=== PATIENT | male | born 1940 | race Caucasian/White ===

== ENCOUNTER → 2018-01-27 | Outpatient (CLI) | payer OTHER, MEDICARE ==
[~2018-01-27] MED LIST: LOSA100T6 PO; METF500T27 PO; OXYC1TAB7 PO; PAIN MED PO; SENN1TAB7 PO; TERA5CAP3 PO
== END | disposition home or self-care (01) ==
LOC: RAD 09:21
PROVIDERS: ATTEND Otolaryngology
DX: H90.6 Mixed conductive and sensorineural hearing loss, bilateral (principal); E11.9 Type 2 diabetes mellitus without complications
CPT/HCPCS: 70480

== ENCOUNTER → 2018-04-28 | Outpatient (CLI) | payer OTHER, MEDICARE ==
[~2018-04-28] MED LIST changes: -LOSA100T6 PO; +LOSA100T7 PO; -SENN1TAB7 PO; +SENN1TAB8 PO
[2018-04-28 11:40] LABS: ALBUMIN 3.5 g/dL (3.4-5.0); ANION GAP 7 mmol/L (5-15); CALCIUM 8.6 mg/dL (8.5-10.1); CHLORIDE 111 mmol/L (98-107)
[2018-04-28 11:44] LABS: ALANINE AMINOTRANSFERASE 31 U/L (12-78); ALKALINE PHOSPHATASE 93 U/L (45-117); BILIRUBIN,TOTAL 1.5 mg/dL (0.2-1.0); CREATININE 0.65 mg/dL (0.7-1.3); TOTAL PROTEIN 7.2 g/dL (6.4-8.2)
== END | disposition home or self-care (01) ==
LOC: STAR 10:02
PROVIDERS: ATTEND Surgery
DX: Z01.818 Encounter for other preprocedural examination (principal); K40.90 Unilateral inguinal hernia, without obstruction or gangrene, not specified as recurrent
CPT/HCPCS: 36415; 80053; 93005

== ENCOUNTER 2018-05-04 05:41 | Day surgery (SDC) | payer OTHER, MEDICARE ==
[~2018-05-04] VITALS: Ht 165.1 cm; Wt 109.9 kg
[2018-05-04] MEDS ORDERED: LACTATED RINGERS 1,000 ML IV SCH (06:23)
[2018-05-04 06:24] VITALS: BP 179/82
[2018-05-04] MEDS ORDERED: LIDOCAINE-MPF 1%, 2ML INFIL ONE (06:30)
[2018-05-04] MEDS ORDERED: BUPIVACAINE/PF-EPI 0.5% 1:200K ONE (06:43)
[2018-05-04] MEDS ORDERED: LIDOCAINE/PF 1%, 30ML ONE (06:43)
[2018-05-04] MEDS ORDERED: FENTANYL PF 100 MCG/2ML ONE (07:06)
[2018-05-04] MEDS ORDERED: ACETAMINOPHEN 500 MG TABLET ONE (07:19)
[2018-05-04] MEDS ORDERED: ACETAMINOPHEN 500 MG TABLET PO ONE (07:30)
[2018-05-04] MEDS ORDERED: KETOROLAC 30 MG/1 ML ONE (07:39)
[2018-05-04] MEDS ORDERED: PROPOFOL 10 MG/ML, 20ML ONE (08:05)
[2018-05-04] MEDS ORDERED: CEFAZOLIN 1,000 MG ONE (08:05)
[2018-05-04] MEDS ORDERED: DEXAMETHASONE 4 MG/ML, 1ML ONE (08:05)
[2018-05-04] MEDS ORDERED: ONDANSETRON 2MG/ML, 2ML ONE (08:05)
[2018-05-04] MEDS ORDERED: DIPHENHYDRAMINE 50 MG/ML, 1ML IVPush PRN (09:00)
[2018-05-04] MEDS ORDERED: FENTANYL PF 100 MCG/2ML IV PRN (09:00)
[2018-05-04] MEDS ORDERED: hydrALAzine 20 MG/ML, 1ML IV PRN (09:00)
[2018-05-04] MEDS ORDERED: HYDROmorphone 1 MG/ML, 1ML IV PRN (09:00)
[2018-05-04] MEDS ORDERED: LABETALOL 5MG/ML, 20ML IV PRN (09:00)
[2018-05-04] MEDS ORDERED: OXYcodone 5 MG/5 ML ORAL.SOL UDC PO PRN (09:00)
[2018-05-04] MEDS ORDERED: PROCHLORPERAZINE 5 MG/ML, 2ML IV PRN (09:00)
[2018-05-04] MEDS ORDERED: MEPERIDINE/PF 25MG/0.5ML IVPush PRN (09:00)
[2018-05-04] MEDS ORDERED: OXYcodone 5 MG/5 ML ORAL.SOL UDC ONE (09:01)
== END 2018-05-04 13:00 | disposition home or self-care (01) ==
LOC: OUT 05:41
PROVIDERS: ATTEND Surgery
DX: K40.90 Unilateral inguinal hernia, without obstruction or gangrene, not specified as recurrent (principal); D17.6 Benign lipomatous neoplasm of spermatic cord; Z79.899 Other long term (current) drug therapy; Z98.890 Other specified postprocedural states; I10 Essential (primary) hypertension
CPT/HCPCS: 49505; 82962; C1781; J0690; J1100; J1885; J2405; J2704; J3010; J7120; J3490

== ENCOUNTER → 2018-07-20 | Outpatient (CLI) | payer OTHER, MEDICARE ==
[~2018-07-20] MED LIST changes: +LOSA100T14 PO; -LOSA100T7 PO; +OMNIPAQUE 350 MG/ML, 100ML BOTTLE ONE
== END | disposition home or self-care (01) ==
LOC: CFH 12:56
PROVIDERS: ATTEND Surgery
DX: N28.1 Cyst of kidney, acquired (principal); N20.0 Calculus of kidney; K57.90 Diverticulosis of intestine, part unspecified, without perforation or abscess without bleeding
CPT/HCPCS: 74177; 82565; Q9967

== ENCOUNTER 2018-07-27 10:03 | Observation (INO) | payer OTHER, MEDICARE ==
[2018-07-26 08:55] VITALS: BP 155/68
[~2018-07-27] VITALS: Ht 167.6 cm; Wt 108.1 kg
[~2018-07-27 10:03] MED LIST changes: -OMNIPAQUE 350 MG/ML, 100ML BOTTLE ONE; +SENN-177 PO; -SENN1TAB8 PO
[2018-07-27 10:55] VITALS: BP 155/68
[2018-07-27] MEDS ORDERED: LACTATED RINGERS 1,000 ML IV SCH (10:59)
[2018-07-27] MEDS ORDERED: ACETAMINOPHEN 500 MG TABLET PO ONE (11:00)
[2018-07-27] MEDS ORDERED: SCOPOLAMINE PATCH, 1.5MG PATCH.TD72 TD ONE (11:00)
[2018-07-27] MEDS ORDERED: DIAZEPAM 5 MG TABLET PO ONE (11:00)
[2018-07-27] MEDS ORDERED: ONDANSETRON 2MG/ML, 2ML ONE (11:22)
[2018-07-27] MEDS ORDERED: FENTANYL PF 250 MCG/5ML ONE (11:22)
[2018-07-27] MEDS ORDERED: DEXAMETHASONE 4 MG/ML, 5ML ONE (11:24)
[2018-07-27] MEDS ORDERED: CEFAZOLIN 1,000 MG ONE (11:24)
[2018-07-27] MEDS ORDERED: ROCURONIUM 10MG/ML,5ML ONE (11:24)
[2018-07-27] MEDS ORDERED: SUCCINYLCHOLINE 20 MG/ML, 10ML ONE (11:24)
[2018-07-27] MEDS ORDERED: PROPOFOL 10 MG/ML, 20ML ONE (11:24)
[2018-07-27] MEDS ORDERED: BUPIVACAINE/PF-EPI 0.5% 1:200K ONE (11:26)
[2018-07-27] MEDS ORDERED: EPHEDRINE 50 MG/ML, 1ML ONE (12:25)
[2018-07-27] MEDS ORDERED: ALBUTEROL SULFATE 2.5 MG/3 ML NPPB PRN (13:00)
[2018-07-27] MEDS ORDERED: MEPERIDINE/PF 25MG/0.5ML IVPush PRN (13:00)
[2018-07-27] MEDS ORDERED: MIDAZOLAM 1 MG/ML, 2ML IV PRN (13:00)
[2018-07-27] MEDS ORDERED: MORPHINE SULFATE 4 MG/ML, 1ML IVPush PRN (13:00)
[2018-07-27] MEDS ORDERED: PROMETHAZINE 12.5 MG SUPP PR PRN (13:00)
[2018-07-27] MEDS ORDERED: ONDANSETRON 2MG/ML, 2ML IV PRN (13:00)
[2018-07-27] MEDS ORDERED: EPHEDRINE 50 MG/ML, 1ML IVPush PRN (13:00)
[2018-07-27] MEDS ORDERED: HYDROmorphone 2 MG/ML, 1ML IVPush PRN (13:00)
[2018-07-27] MEDS ORDERED: hydrALAzine 20 MG/ML, 1ML IV PRN (13:00)
[2018-07-27] MEDS ORDERED: ONDANSETRON ODT 8 MG PO PRN (13:00)
[2018-07-27] MEDS ORDERED: LABETALOL 5MG/ML, 20ML IV PRN (13:00)
[2018-07-27] MEDS ORDERED: HALOPERIDOL 5 MG/ML IV PRN (13:00)
[2018-07-27] MEDS ORDERED: DIAZEPAM 5 MG/ML, 2ML IVPush PRN (13:00)
[2018-07-27] MEDS ORDERED: PROMETHAZINE 25 MG/ML, 1ML IV PRN (13:00)
[2018-07-27] MEDS ORDERED: OXYcodone 5 MG/5 ML ORAL.SOL UDC ONE ×2 (13:33→14:08)
[2018-07-27] MEDS ORDERED: FENTANYL PF 100 MCG/2ML ONE ×2 (13:33→14:08)
[2018-07-27] MEDS: FENTANYL PF 100 MCG/2ML IV PRN ×3 (13:35→14:10)
[2018-07-27] MEDS: OXYcodone 5 MG/5 ML ORAL.SOL UDC PO PRN ×2 (13:37→14:10)
== END 2018-07-27 17:15 | disposition home or self-care (01) ==
LOC: OUT 10:03 → 2N 10:03 → EDSTATUS 12:00 → UNDOADMOB 12:15 → 3NE 12:15 → OUT 16:40
PROVIDERS: ADMIT Surgery; ATTEND Surgery
DX: T85.79XA Infection and inflammatory reaction due to other internal prosthetic devices, implants and grafts, initial encounter (principal); T81.42XA Infection following a procedure, deep incisional surgical site, initial encounter; Y83.8 Other surgical procedures as the cause of abnormal reaction of the patient, or of later complication, without mention of misadventure at the time of the procedure; Y92.89 Other specified places as the place of occurrence of the external cause
CPT/HCPCS: 10180; 11008; 82962; G0378; J0330; J0690; J1100; J2405; J2704; J3010; J7120

== ENCOUNTER 2018-07-29 08:08 | Outpatient (CLI) | payer OTHER, MEDICARE ==
[~2018-07-29 08:08] MED LIST changes: -SENN-177 PO; +SENN1TAB8 PO
== END 2018-07-29 23:59 | disposition home or self-care (01) ==
LOC: WOUND 08:08
PROVIDERS: ATTEND Family Medicine
DX: T81.31XA Disruption of external operation (surgical) wound, not elsewhere classified, initial encounter (principal); L02.211 Cutaneous abscess of abdominal wall; E11.21 Type 2 diabetes mellitus with diabetic nephropathy; I10 Essential (primary) hypertension; H91.90 Unspecified hearing loss, unspecified ear; E66.01 Morbid (severe) obesity due to excess calories; Z68.41 Body mass index [BMI] 40.0-44.9, adult; Y92.89 Other specified places as the place of occurrence of the external cause; Y83.1 Surgical operation with implant of artificial internal device as the cause of abnormal reaction of the patient, or of later complication, without mention of misadventure at the time of the procedure
CPT/HCPCS: 97605; 99215

== ENCOUNTER 2018-08-01 08:16 | Outpatient (CLI) | payer OTHER, MEDICARE | END 2018-08-01 23:59 | disposition home or self-care (01) | LOC: WOUND 08:16 | PROVIDERS: ATTEND Internal Medicine | DX: T83.728 Exposure of other implanted mesh into organ or tissue (principal); E11.21 Type 2 diabetes mellitus with diabetic nephropathy; I10 Essential (primary) hypertension; E66.01 Morbid (severe) obesity due to excess calories; H91.90 Unspecified hearing loss, unspecified ear; Y83.1 Surgical operation with implant of artificial internal device as the cause of abnormal reaction of the patient, or of later complication, without mention of misadventure at the time of the procedure | CPT/HCPCS: 87070; 87077; 87186; 87205; 97605 ==

== ENCOUNTER → 2018-08-03 | Outpatient (CLI) | payer OTHER, MEDICARE | END | disposition home or self-care (01) | LOC: WOUND 07:59 | PROVIDERS: ATTEND Internal Medicine | DX: T83.728 Exposure of other implanted mesh into organ or tissue (principal); E11.21 Type 2 diabetes mellitus with diabetic nephropathy; I10 Essential (primary) hypertension; E66.01 Morbid (severe) obesity due to excess calories; H91.90 Unspecified hearing loss, unspecified ear; Y83.1 Surgical operation with implant of artificial internal device as the cause of abnormal reaction of the patient, or of later complication, without mention of misadventure at the time of the procedure | CPT/HCPCS: 97605 ==

== ENCOUNTER 2018-08-05 09:17 | Outpatient (CLI) | payer OTHER, MEDICARE | END 2018-08-05 23:59 | disposition home or self-care (01) | LOC: WOUND 09:17 | PROVIDERS: ATTEND Family Medicine | DX: T81.31XD Disruption of external operation (surgical) wound, not elsewhere classified, subsequent encounter (principal); L02.211 Cutaneous abscess of abdominal wall; E11.21 Type 2 diabetes mellitus with diabetic nephropathy; E66.01 Morbid (severe) obesity due to excess calories; I10 Essential (primary) hypertension; H91.90 Unspecified hearing loss, unspecified ear; E66.9 Obesity, unspecified; Z68.41 Body mass index [BMI] 40.0-44.9, adult; Y83.8 Other surgical procedures as the cause of abnormal reaction of the patient, or of later complication, without mention of misadventure at the time of the procedure | CPT/HCPCS: 97605 ==

== ENCOUNTER 2018-08-08 13:53 | Inpatient (IN) | payer OTHER, MEDICARE ==
[~2018-08-08] VITALS: Ht 167.6 cm; Wt 109.7 kg
[~2018-08-08 13:53] MED LIST changes: +SENN-177 PO; -SENN1TAB8 PO
[2018-08-08] MEDS ORDERED: ONDANSETRON 2MG/ML, 2ML IVPush PRN (17:30)
[2018-08-08] MEDS: HEPARIN 5,000 UNITS/ML, 1ML SQ SCH (17:30)
[2018-08-08] MEDS ORDERED: GABAPENTIN 300 MG CAPSULE PO PRN (17:30)
[2018-08-08] MEDS ORDERED: ACETAMINOPHEN 325 MG TABLET PO PRN (17:30)
[2018-08-08] MEDS ORDERED: morphine SULFATE 10 MG/ML, 1ML IVPush PRN (17:30)
[2018-08-08] MEDS ORDERED: LABETALOL 5MG/ML, 20ML IVPush PRN (17:30)
[2018-08-08] MEDS ORDERED: HYDROcodone/APAP 5/325 TABLET PO PRN (17:30)
[2018-08-08 17:50] VITALS: BP 142/65
[2018-08-08] MEDS ORDERED: DAPTOMYCIN 700 MG in SODIUM CHLORIDE 0.9% 100 ML IV SCH (18:00)
[2018-08-08] MEDS ORDERED: PLEASE ENTER HEIGHT AND WEIGHT MC SCH (18:00)
[2018-08-08 18:16] LABS: BASOPHILS # (AUTO) 0.02 x10^3/uL (0-0.1); BASOPHILS % (AUTO) 0 % (0-1); EOSINOPHILS # (AUTO) 0.49 x10^3/uL (0-0.4); EOSINOPHILS % (AUTO) 6 % (1-7); LYMPHOCYTES % (AUTO) 18 % (22-44); MD NO; MEAN CORPUSCULAR HEMOGLOBIN 29.6 pg (27.5-34.5); MEAN CORPUSCULAR HGB CONC 33.2 g/dL (33.2-36.2); MEAN CORPUSCULAR VOLUME 89.3 fL (81-97); MEAN PLATELET VOLUME 7.2 fL (7.4-10.4); MONOCYTES # (AUTO) 0.65 x10^3/uL (0.2-0.8); MONOCYTES % (AUTO) 8 % (2-9); NEUTROPHILS # (AUTO) 5.27 x10^3/uL (1.8-6.8); NEUTROPHILS % (AUTO) 67 % (42-75); PLATELET COUNT 228 x10^3/uL (130-400); RED BLOOD COUNT 4.05 x10^6/uL (4.38-5.82); RED CELL DISTRIBUTION WIDTH 17.3 % (9.4-14.8)
[2018-08-08 18:20] LABS: INTERNATIONAL NORMALIZED RATIO 1.1 (0.93-1.1); PROTHROMBIN TIME 11.5 Seconds (9.6-11.5)
[2018-08-08 18:22] LABS: ALBUMIN 2.9 g/dL (3.4-5.0); ANION GAP 4 mmol/L (5-15); CALCIUM 7.9 mg/dL (8.5-10.1); CHLORIDE 113 mmol/L (98-107)
[2018-08-08 18:25] LABS: ALANINE AMINOTRANSFERASE 12 U/L (12-78); ALKALINE PHOSPHATASE 68 U/L (45-117); BILIRUBIN,TOTAL 0.9 mg/dL (0.2-1.0); CREATININE 0.66 mg/dL (0.7-1.3); TOTAL PROTEIN 6.4 g/dL (6.4-8.2)
[2018-08-08] MEDS: SODIUM CHLORIDE 0.9% 1,000 ML IV SCH (19:03)
[2018-08-08 19:10] VITALS: BP 155/68
[2018-08-08] MEDS: PIPERACILLIN/TAZO/PMX 3.375GM 50 ML IV SCH (20:49)
[2018-08-09 00:23] VITALS: BP 129/74
[2018-08-09] MEDS: HEPARIN 5,000 UNITS/ML, 1ML SQ SCH ×3 (01:12→15:27)
[2018-08-09] MEDS: PIPERACILLIN/TAZO/PMX 3.375GM 50 ML IV SCH ×3 (02:50→14:06)
[2018-08-09 05:12] LABS: ALANINE AMINOTRANSFERASE 15 U/L (12-78); ALBUMIN 2.8 g/dL (3.4-5.0); ALKALINE PHOSPHATASE 66 U/L (45-117); BILIRUBIN,TOTAL 1.4 mg/dL (0.2-1.0); TOTAL PROTEIN 6.2 g/dL (6.4-8.2)
[2018-08-09 05:19] LABS: ANION GAP 6 mmol/L (5-15); CHLORIDE 113 mmol/L (98-107)
[2018-08-09 06:48] VITALS: BP 126/70
[2018-08-09] MEDS: LOSARTAN 50MG TABLET PO SCH (08:10)
[2018-08-09] MEDS ORDERED: OMNIPAQUE 350 MG/ML, 100ML BOTTLE ONE (10:03)
[2018-08-09 12:22] VITALS: BP 133/71
[2018-08-09] MEDS: SODIUM CHLORIDE 0.9% 1,000 ML IV SCH (15:00)
[2018-08-09] MEDS: DAPTOMYCIN 900 MG in SODIUM CHLORIDE 0.9% 100 ML IVPB SCH (15:11)
[2018-08-09] MEDS: INSULIN LISPRO 100 UNITS/ML, PEN SQ-INSULIN SCH ×2 (15:29→21:00)
[2018-08-09 19:03] VITALS: BP 129/72
[2018-08-09] MEDS: CIPROFLOXACIN 500 MG TABLET PO SCH (21:07)
[2018-08-10 01:16] VITALS: BP 154/80
[2018-08-10] MEDS: HEPARIN 5,000 UNITS/ML, 1ML SQ SCH ×3 (01:30→18:36)
[2018-08-10 05:31] LABS: ALBUMIN 2.7 g/dL (3.4-5.0); ANION GAP 4 mmol/L (5-15); CALCIUM 8.2 mg/dL (8.5-10.1); CHLORIDE 111 mmol/L (98-107)
[2018-08-10 05:37] LABS: ALANINE AMINOTRANSFERASE 17 U/L (12-78); ALKALINE PHOSPHATASE 67 U/L (45-117); BILIRUBIN,TOTAL 0.9 mg/dL (0.2-1.0); CREATININE 0.61 mg/dL (0.7-1.3); TOTAL PROTEIN 6.3 g/dL (6.4-8.2)
[2018-08-10 05:49] LABS: BASOPHILS # (AUTO) 0.01 x10^3/uL (0-0.1); BASOPHILS % (AUTO) 0 % (0-1); EOSINOPHILS # (AUTO) 0.54 x10^3/uL (0-0.4); EOSINOPHILS % (AUTO) 10 % (1-7); LYMPHOCYTES % (AUTO) 25 % (22-44); MD NO; MEAN CORPUSCULAR HEMOGLOBIN 29.6 pg (27.5-34.5); MEAN CORPUSCULAR HGB CONC 33.5 g/dL (33.2-36.2); MEAN CORPUSCULAR VOLUME 88.3 fL (81-97); MEAN PLATELET VOLUME 7.1 fL (7.4-10.4); MONOCYTES % (AUTO) 8 % (2-9); NEUTROPHILS # (AUTO) 2.95 x10^3/uL (1.8-6.8); NEUTROPHILS % (AUTO) 57 % (42-75); PLATELET COUNT 246 x10^3/uL (130-400); RED CELL DISTRIBUTION WIDTH 17.5 % (9.4-14.8)
[2018-08-10] MEDS: INSULIN LISPRO 100 UNITS/ML, PEN SQ-INSULIN SCH ×4 (07:00→20:00)
[2018-08-10 07:21] VITALS: BP 156/78
[2018-08-10] MEDS: CIPROFLOXACIN 500 MG TABLET PO SCH ×2 (09:30→20:00)
[2018-08-10] MEDS: LOSARTAN 50MG TABLET PO SCH (09:30)
[2018-08-10 12:11] VITALS: BP 160/80
[2018-08-10] MEDS: DAPTOMYCIN 900 MG in SODIUM CHLORIDE 0.9% 100 ML IVPB SCH (15:51)
[2018-08-10 20:10] VITALS: BP 155/63
[2018-08-11 01:48] VITALS: BP 161/71
[2018-08-11] MEDS: HEPARIN 5,000 UNITS/ML, 1ML SQ SCH (02:39)
[2018-08-11 06:36] VITALS: BP 163/64
[2018-08-11] MEDS ORDERED: LABETALOL 5MG/ML, 20ML IVPush PRN (07:00)
[2018-08-11] MEDS: INSULIN LISPRO 100 UNITS/ML, PEN SQ-INSULIN SCH ×4 (07:00→20:14)
[2018-08-11] MEDS: HYDROCHLOROTHIAZIDE 25 MG TABLET PO SCH (08:11)
[2018-08-11] MEDS: LOSARTAN 50MG TABLET PO SCH (08:11)
[2018-08-11] MEDS: CIPROFLOXACIN 500 MG TABLET PO SCH ×2 (08:12→20:13)
[2018-08-11] MEDS: ENOXAPARIN 40 MG/0.4 ML SQ SCH (11:59)
[2018-08-11 12:17] VITALS: BP 157/58
[2018-08-11] MEDS: DAPTOMYCIN 900 MG in SODIUM CHLORIDE 0.9% 100 ML IVPB SCH (15:29)
[2018-08-11 18:49] VITALS: BP 132/65
[2018-08-12 00:30] VITALS: BP 162/84
[2018-08-12 06:45] VITALS: BP 147/70
[2018-08-12] MEDS: INSULIN LISPRO 100 UNITS/ML, PEN SQ-INSULIN SCH ×4 (07:00→21:37)
[2018-08-12] MEDS: AMLODIPINE 5 MG TABLET PO SCH (08:13)
[2018-08-12] MEDS: HYDROCHLOROTHIAZIDE 25 MG TABLET PO SCH (08:13)
[2018-08-12] MEDS: LOSARTAN 50MG TABLET PO SCH (08:13)
[2018-08-12] MEDS: CIPROFLOXACIN 500 MG TABLET PO SCH ×2 (08:14→19:47)
[2018-08-12] MEDS: ENOXAPARIN 40 MG/0.4 ML SQ SCH (11:39)
[2018-08-12] MEDS: SODIUM CHLORIDE 0.9% 1,000 ML IV SCH (11:39)
[2018-08-12 13:19] LABS: CLOSTRIDIUM DIFFICILE ANTIGEN NEGATIVE; CLOSTRIDIUM DIFFICILE TOXIN NEGATIVE (Negative)
[2018-08-12] MEDS: DAPTOMYCIN IVPB SCH (13:28)
[2018-08-12] MEDS: SODIUM CHLORIDE 0.9% IVPB SCH (13:28)
[2018-08-12 14:00] VITALS: BP 117/58
[2018-08-12 18:32] VITALS: BP 128/54
[2018-08-13 02:20] VITALS: BP 119/61
[2018-08-13 03:19] LABS: BASOPHILS # (AUTO) 0.03 x10^3/uL (0-0.1); BASOPHILS % (AUTO) 1 % (0-1); EOSINOPHILS # (AUTO) 0.45 x10^3/uL (0-0.4); EOSINOPHILS % (AUTO) 8 % (1-7); LYMPHOCYTES # (AUTO) 1.38 x10^3/uL (1-3.4); LYMPHOCYTES % (AUTO) 25 % (22-44); MD NO; MEAN CORPUSCULAR HEMOGLOBIN 29.3 pg (27.5-34.5); MEAN CORPUSCULAR HGB CONC 32.9 g/dL (33.2-36.2); MEAN CORPUSCULAR VOLUME 88.9 fL (81-97); MEAN PLATELET VOLUME 7.1 fL (7.4-10.4); MONOCYTES # (AUTO) 0.42 x10^3/uL (0.2-0.8); MONOCYTES % (AUTO) 8 % (2-9); NEUTROPHILS # (AUTO) 3.17 x10^3/uL (1.8-6.8); NEUTROPHILS % (AUTO) 58 % (42-75); PLATELET COUNT 277 x10^3/uL (130-400); RED BLOOD COUNT 4.52 x10^6/uL (4.38-5.82); RED CELL DISTRIBUTION WIDTH 17.3 % (9.4-14.8)
[2018-08-13 03:28] LABS: ALANINE AMINOTRANSFERASE 29 U/L (12-78); ALBUMIN 3.2 g/dL (3.4-5.0); ANION GAP 4 mmol/L (5-15); CALCIUM 8.7 mg/dL (8.5-10.1); CHLORIDE 111 mmol/L (98-107); CREATININE 0.77 mg/dL (0.7-1.3)
[2018-08-13 03:30] LABS: ALKALINE PHOSPHATASE 81 U/L (45-117); BILIRUBIN,TOTAL 0.7 mg/dL (0.2-1.0); TOTAL PROTEIN 7.2 g/dL (6.4-8.2)
[2018-08-13 06:53] VITALS: BP 173/80
[2018-08-13] MEDS: INSULIN LISPRO 100 UNITS/ML, PEN SQ-INSULIN SCH ×4 (08:56→20:43)
[2018-08-13] MEDS: SODIUM CHLORIDE 0.9% 1,000 ML IV SCH (08:56)
[2018-08-13] MEDS: LOSARTAN 50MG TABLET PO SCH (08:57)
[2018-08-13] MEDS: AMLODIPINE 5 MG TABLET PO SCH (08:57)
[2018-08-13] MEDS: HYDROCHLOROTHIAZIDE 25 MG TABLET PO SCH (08:57)
[2018-08-13] MEDS: CIPROFLOXACIN 500 MG TABLET PO SCH ×2 (08:58→20:44)
[2018-08-13] MEDS: ENOXAPARIN 40 MG/0.4 ML SQ SCH (08:58)
[2018-08-13 12:44] VITALS: BP 133/50
[2018-08-13] MEDS: DAPTOMYCIN IVPB SCH (13:55)
[2018-08-13] MEDS: SODIUM CHLORIDE 0.9% IVPB SCH (13:55)
[2018-08-13 18:30] VITALS: BP 156/71
[2018-08-14 01:33] VITALS: BP 163/77
[2018-08-14] MEDS: SODIUM CHLORIDE 0.9% 1,000 ML IV SCH (04:04)
[2018-08-14 06:40] VITALS: BP 159/80
[2018-08-14] MEDS: INSULIN LISPRO 100 UNITS/ML, PEN SQ-INSULIN SCH ×4 (07:00→20:46)
[2018-08-14] MEDS ORDERED: ACETAMINOPHEN 325 MG TABLET PO PRN (07:30)
[2018-08-14] MEDS: CARVEDILOL 6.25 MG TABLET PO SCH ×2 (08:06→17:33)
[2018-08-14] MEDS: HEPARIN 5,000 UNITS/ML, 1ML SQ SCH ×3 (08:07→23:30)
[2018-08-14] MEDS: LACTOBACILLUS CHEW TABLET PO SCH ×3 (09:33→20:41)
[2018-08-14] MEDS: CIPROFLOXACIN 500 MG TABLET PO SCH ×2 (09:33→20:41)
[2018-08-14] MEDS: LOSARTAN 50MG TABLET PO SCH (09:34)
[2018-08-14] MEDS: ISOSORBIDE DINITRATE 10 MG TABLET PO SCH ×3 (09:34→20:41)
[2018-08-14 12:03] VITALS: BP 105/58
[2018-08-14] MEDS: SODIUM CHLORIDE 0.9% IVPB SCH (13:01)
[2018-08-14] MEDS: DAPTOMYCIN IVPB SCH (13:01)
[2018-08-14 18:58] VITALS: BP 111/62
[2018-08-15 04:50] VITALS: BP 146/75
[2018-08-15] MEDS: CARVEDILOL 6.25 MG TABLET PO SCH ×2 (06:00→18:24)
[2018-08-15 06:29] LABS: HCT (SEDRATE) 39.1 % (39.2-51.8)
[2018-08-15 06:30] LABS: BASOPHILS # (AUTO) 0.02 x10^3/uL (0-0.1); BASOPHILS % (AUTO) 0 % (0-1); EOSINOPHILS # (AUTO) 0.32 x10^3/uL (0-0.4); EOSINOPHILS % (AUTO) 7 % (1-7); LYMPHOCYTES # (AUTO) 1.61 x10^3/uL (1-3.4); LYMPHOCYTES % (AUTO) 33 % (22-44); MD NO; MEAN CORPUSCULAR HEMOGLOBIN 29.6 pg (27.5-34.5); MEAN CORPUSCULAR HGB CONC 33.9 g/dL (33.2-36.2); MEAN CORPUSCULAR VOLUME 87.4 fL (81-97); MEAN PLATELET VOLUME 7.2 fL (7.4-10.4); MONOCYTES # (AUTO) 0.45 x10^3/uL (0.2-0.8); MONOCYTES % (AUTO) 9 % (2-9); NEUTROPHILS # (AUTO) 2.44 x10^3/uL (1.8-6.8); NEUTROPHILS % (AUTO) 51 % (42-75); PLATELET COUNT 246 x10^3/uL (130-400); RED BLOOD COUNT 4.42 x10^6/uL (4.38-5.82); RED CELL DISTRIBUTION WIDTH 17.8 % (9.4-14.8)
[2018-08-15 06:34] VITALS: BP 165/85
[2018-08-15 06:42] LABS: ALBUMIN 3.2 g/dL (3.4-5.0); ANION GAP 2 mmol/L (5-15); C-REACTIVE PROTEIN, QUANT 0.74 mg/dL (0.02-0.49); CALCIUM 8.3 mg/dL (8.5-10.1); CHLORIDE 113 mmol/L (98-107)
[2018-08-15 06:44] LABS: ALANINE AMINOTRANSFERASE 34 U/L (12-78); ALKALINE PHOSPHATASE 79 U/L (45-117); BILIRUBIN,TOTAL 0.8 mg/dL (0.2-1.0); CREATINE KINASE, TOTAL 45 U/L (39-308); CREATININE 0.77 mg/dL (0.7-1.3); TOTAL PROTEIN 7.1 g/dL (6.4-8.2)
[2018-08-15 06:48] LABS: HEMOGLOBIN A1C 6.6 % (4.2-6.3)
[2018-08-15] MEDS: INSULIN LISPRO 100 UNITS/ML, PEN SQ-INSULIN SCH ×4 (07:00→20:14)
[2018-08-15] MEDS: SODIUM CHLORIDE 0.9% 1,000 ML IV SCH (07:53)
[2018-08-15] MEDS: HEPARIN 5,000 UNITS/ML, 1ML SQ SCH ×3 (07:53→23:30)
[2018-08-15] MEDS: LACTOBACILLUS CHEW TABLET PO SCH ×3 (07:54→20:11)
[2018-08-15] MEDS: ISOSORBIDE DINITRATE 10 MG TABLET PO SCH ×3 (07:54→20:11)
[2018-08-15] MEDS: CIPROFLOXACIN 500 MG TABLET PO SCH ×2 (07:54→20:11)
[2018-08-15] MEDS: LOSARTAN 50MG TABLET PO SCH (07:54)
[2018-08-15 12:02] VITALS: BP 139/64
[2018-08-15] MEDS: SODIUM CHLORIDE 0.9% IVPB SCH (12:23)
[2018-08-15] MEDS: DAPTOMYCIN IVPB SCH (12:23)
[2018-08-15 18:20] VITALS: BP 132/59
[2018-08-15 18:59] VITALS: BP 137/55
[2018-08-16 01:22] VITALS: BP 120/63
[2018-08-16] MEDS: HEPARIN 5,000 UNITS/ML, 1ML SQ SCH ×3 (06:25→23:18)
[2018-08-16] MEDS: CARVEDILOL 6.25 MG TABLET PO SCH ×2 (06:25→18:11)
[2018-08-16] MEDS: SODIUM CHLORIDE 0.9% 1,000 ML IV SCH ×2 (06:25→23:19)
[2018-08-16 06:56] LABS: CREATININE 0.65 mg/dL (0.7-1.3)
[2018-08-16] MEDS: INSULIN LISPRO 100 UNITS/ML, PEN SQ-INSULIN SCH ×4 (07:00→20:09)
[2018-08-16 07:19] VITALS: BP 143/74
[2018-08-16] MEDS: ISOSORBIDE DINITRATE 10 MG TABLET PO SCH ×3 (07:44→20:04)
[2018-08-16] MEDS: LACTOBACILLUS CHEW TABLET PO SCH ×3 (07:44→20:03)
[2018-08-16] MEDS: LOSARTAN 50MG TABLET PO SCH (07:45)
[2018-08-16] MEDS: CIPROFLOXACIN 500 MG TABLET PO SCH ×2 (07:45→20:03)
[2018-08-16 12:04] VITALS: BP 148/64
[2018-08-16] MEDS: SODIUM CHLORIDE 0.9% IVPB SCH (12:31)
[2018-08-16] MEDS: DAPTOMYCIN IVPB SCH (12:31)
[2018-08-16 18:08] VITALS: BP 167/66
[2018-08-17 01:15] VITALS: BP 137/63
[2018-08-17] MEDS: CARVEDILOL 6.25 MG TABLET PO SCH (05:57)
[2018-08-17 06:45] VITALS: BP 153/78
[2018-08-17] MEDS: INSULIN LISPRO 100 UNITS/ML, PEN SQ-INSULIN SCH ×3 (07:00→16:00)
[2018-08-17] MEDS: LOSARTAN 50MG TABLET PO SCH (07:21)
[2018-08-17] MEDS: HEPARIN 5,000 UNITS/ML, 1ML SQ SCH ×2 (07:21→15:13)
[2018-08-17] MEDS: ISOSORBIDE DINITRATE 10 MG TABLET PO SCH ×2 (07:22→16:37)
[2018-08-17] MEDS: CIPROFLOXACIN 500 MG TABLET PO SCH (07:22)
[2018-08-17] MEDS: LACTOBACILLUS CHEW TABLET PO SCH ×2 (07:22→16:36)
[2018-08-17] MEDS ORDERED: CIPR500T87 PO (08:51)
[2018-08-17] MEDS: DAPTOMYCIN IVPB SCH (11:15)
[2018-08-17] MEDS: SODIUM CHLORIDE 0.9% IVPB SCH (11:15)
[2018-08-17 12:54] VITALS: BP 143/65
== END 2018-08-17 16:50 | disposition home health service (06) | DRG 863 ==
LOC: WOUND 13:53 → 3NE 16:04
PROVIDERS: ADMIT Internal Medicine; ATTEND Hospitalist
PROC: 02HV33Z Insertion of Infusion Device into Superior Vena Cava, Percutaneous Approach (ICD-10-PCS; principal; 2018-08-11)
PROC: B5181ZA Fluoroscopy of Superior Vena Cava using Low Osmolar Contrast, Guidance (ICD-10-PCS; 2018-08-11)
PROC: B548ZZA Ultrasonography of Superior Vena Cava, Guidance (ICD-10-PCS; 2018-08-11)
DX: T81.49XA Infection following a procedure, other surgical site, initial encounter (principal); E44.1 Mild protein-calorie malnutrition; B96.4 Proteus (mirabilis) (morganii) as the cause of diseases classified elsewhere; B95.2 Enterococcus as the cause of diseases classified elsewhere; Y83.8 Other surgical procedures as the cause of abnormal reaction of the patient, or of later complication, without mention of misadventure at the time of the procedure; D64.9 Anemia, unspecified; E11.9 Type 2 diabetes mellitus without complications; Z96.653 Presence of artificial knee joint, bilateral; E66.01 Morbid (severe) obesity due to excess calories; G47.00 Insomnia, unspecified; I10 Essential (primary) hypertension; Z86.718 Personal history of other venous thrombosis and embolism; Y92.89 Other specified places as the place of occurrence of the external cause; Z68.39 Body mass index [BMI] 39.0-39.9, adult
CPT/HCPCS: 36415; 36573; 74177; 80053; 82550; 82565; 82962; 83036; 84145; 85025; 85610; 85651; 86140; 87040; 87324; 93005; 97162; 99213; G0378; J0878; J1644; J1650; J2543; Q9967; C1751; J1815; J7030

== ENCOUNTER → 2018-08-19 | Outpatient (CLI) | payer OTHER, MEDICARE ==
[~2018-08-19] MED LIST changes: +CIPR500T87 PO
== END | disposition home or self-care (01) ==
LOC: WOUND 12:46
PROVIDERS: ATTEND Family Medicine
DX: T81.31XD Disruption of external operation (surgical) wound, not elsewhere classified, subsequent encounter (principal); E11.621 Type 2 diabetes mellitus with foot ulcer; L97.522 Non-pressure chronic ulcer of other part of left foot with fat layer exposed; I10 Essential (primary) hypertension; E11.21 Type 2 diabetes mellitus with diabetic nephropathy; E66.01 Morbid (severe) obesity due to excess calories; Z68.41 Body mass index [BMI] 40.0-44.9, adult; Z86.718 Personal history of other venous thrombosis and embolism; Y83.8 Other surgical procedures as the cause of abnormal reaction of the patient, or of later complication, without mention of misadventure at the time of the procedure
CPT/HCPCS: 97605

== ENCOUNTER → 2018-08-22 | Outpatient (CLI) | payer OTHER, MEDICARE | END | disposition home or self-care (01) | LOC: WOUND 08:42 | PROVIDERS: ATTEND Internal Medicine | DX: T81.31XD Disruption of external operation (surgical) wound, not elsewhere classified, subsequent encounter (principal); E11.21 Type 2 diabetes mellitus with diabetic nephropathy; I10 Essential (primary) hypertension; E66.01 Morbid (severe) obesity due to excess calories; H91.90 Unspecified hearing loss, unspecified ear; Z86.718 Personal history of other venous thrombosis and embolism; Y83.8 Other surgical procedures as the cause of abnormal reaction of the patient, or of later complication, without mention of misadventure at the time of the procedure | CPT/HCPCS: 97605 ==

== ENCOUNTER → 2018-08-24 | Outpatient (CLI) | payer OTHER, MEDICARE | END | disposition home or self-care (01) | LOC: WOUND 10:28 | PROVIDERS: ATTEND Internal Medicine | DX: T81.31XD Disruption of external operation (surgical) wound, not elsewhere classified, subsequent encounter (principal); E11.21 Type 2 diabetes mellitus with diabetic nephropathy; L02.211 Cutaneous abscess of abdominal wall; I10 Essential (primary) hypertension; E66.01 Morbid (severe) obesity due to excess calories; H91.90 Unspecified hearing loss, unspecified ear; Z86.718 Personal history of other venous thrombosis and embolism; Y83.8 Other surgical procedures as the cause of abnormal reaction of the patient, or of later complication, without mention of misadventure at the time of the procedure | CPT/HCPCS: 99212 ==

== ENCOUNTER → 2018-08-26 | Outpatient (CLI) | payer OTHER, MEDICARE | END | disposition home or self-care (01) | LOC: WOUND 12:52 | PROVIDERS: ATTEND Family Medicine | DX: T81.31XD Disruption of external operation (surgical) wound, not elsewhere classified, subsequent encounter (principal); E11.621 Type 2 diabetes mellitus with foot ulcer; L97.521 Non-pressure chronic ulcer of other part of left foot limited to breakdown of skin; E11.21 Type 2 diabetes mellitus with diabetic nephropathy; L02.211 Cutaneous abscess of abdominal wall; I10 Essential (primary) hypertension; E66.01 Morbid (severe) obesity due to excess calories; H91.90 Unspecified hearing loss, unspecified ear; Z96.653 Presence of artificial knee joint, bilateral; Z86.718 Personal history of other venous thrombosis and embolism | CPT/HCPCS: 99213 ==

== ENCOUNTER 2018-09-02 13:18 | Outpatient (CLI) | payer OTHER, MEDICARE | END 2018-09-02 23:59 | disposition home or self-care (01) | LOC: WOUND 13:18 | PROVIDERS: ATTEND Family Medicine | DX: T81.31XD Disruption of external operation (surgical) wound, not elsewhere classified, subsequent encounter (principal); E11.622 Type 2 diabetes mellitus with other skin ulcer; L98.491 Non-pressure chronic ulcer of skin of other sites limited to breakdown of skin; E11.21 Type 2 diabetes mellitus with diabetic nephropathy; L02.211 Cutaneous abscess of abdominal wall; I10 Essential (primary) hypertension; H91.90 Unspecified hearing loss, unspecified ear; E66.01 Morbid (severe) obesity due to excess calories; Z68.41 Body mass index [BMI] 40.0-44.9, adult; Z96.653 Presence of artificial knee joint, bilateral; Y83.8 Other surgical procedures as the cause of abnormal reaction of the patient, or of later complication, without mention of misadventure at the time of the procedure | CPT/HCPCS: 99213 ==

== ENCOUNTER → 2018-09-16 | Outpatient (CLI) | payer OTHER, MEDICARE | END | disposition home or self-care (01) | LOC: WOUND 12:51 | PROVIDERS: ATTEND Family Medicine | DX: T81.31XD Disruption of external operation (surgical) wound, not elsewhere classified, subsequent encounter (principal); E11.622 Type 2 diabetes mellitus with other skin ulcer; L98.491 Non-pressure chronic ulcer of skin of other sites limited to breakdown of skin; E11.21 Type 2 diabetes mellitus with diabetic nephropathy; L02.211 Cutaneous abscess of abdominal wall; I10 Essential (primary) hypertension; H91.90 Unspecified hearing loss, unspecified ear; E66.01 Morbid (severe) obesity due to excess calories; Z68.41 Body mass index [BMI] 40.0-44.9, adult; Z96.653 Presence of artificial knee joint, bilateral; Y83.8 Other surgical procedures as the cause of abnormal reaction of the patient, or of later complication, without mention of misadventure at the time of the procedure | CPT/HCPCS: 99213 ==

== ENCOUNTER → 2018-09-30 | Outpatient (CLI) | payer OTHER, MEDICARE | END | disposition home or self-care (01) | LOC: WOUND 10:00 | PROVIDERS: ATTEND Family Medicine | DX: T81.31XD Disruption of external operation (surgical) wound, not elsewhere classified, subsequent encounter (principal); E11.622 Type 2 diabetes mellitus with other skin ulcer; L98.491 Non-pressure chronic ulcer of skin of other sites limited to breakdown of skin; E11.21 Type 2 diabetes mellitus with diabetic nephropathy; L02.211 Cutaneous abscess of abdominal wall; I10 Essential (primary) hypertension; H91.90 Unspecified hearing loss, unspecified ear; E66.01 Morbid (severe) obesity due to excess calories; Z68.41 Body mass index [BMI] 40.0-44.9, adult; Z96.653 Presence of artificial knee joint, bilateral; Y83.8 Other surgical procedures as the cause of abnormal reaction of the patient, or of later complication, without mention of misadventure at the time of the procedure | CPT/HCPCS: 99213 ==

== ENCOUNTER 2018-10-14 09:42 | Outpatient (CLI) | payer OTHER, MEDICARE | END 2018-10-14 23:59 | disposition home or self-care (01) | LOC: WOUND 09:42 | PROVIDERS: ATTEND Family Medicine | DX: T81.31XD Disruption of external operation (surgical) wound, not elsewhere classified, subsequent encounter (principal); L02.211 Cutaneous abscess of abdominal wall; E11.21 Type 2 diabetes mellitus with diabetic nephropathy; I10 Essential (primary) hypertension; H91.90 Unspecified hearing loss, unspecified ear; E66.01 Morbid (severe) obesity due to excess calories; Z68.41 Body mass index [BMI] 40.0-44.9, adult; Z96.653 Presence of artificial knee joint, bilateral; Y83.8 Other surgical procedures as the cause of abnormal reaction of the patient, or of later complication, without mention of misadventure at the time of the procedure | CPT/HCPCS: 99212 ==